=== PATIENT | male | born 1965 | race Caucasian/White ===

== ENCOUNTER 2017-12-04 09:25 | Emergency (ER) | payer BC ==
[2017-12-04 09:50] LABS: BASOPHILS % (AUTO) 1 % (0-3); EOSINOPHILS % (AUTO) 10 % (0-9); HEMATOCRIT 44 % (39-53); HEMOGLOBIN 14.5 gm/dl (13.5-17.7); LYMPHOCYTES % (AUTO) 25.2 % (10-50); MEAN CORPUSCULAR HEMOGLOBIN 31.4 pg (27.0-32.0); MEAN CORPUSCULAR HGB CONC 32.9 gm/dl (32.0-36.0); MEAN CORPUSCULAR VOLUME 96 fL (80-100); MONOCYTES % (AUTO) 12.5 % (0-12); NEUTROPHILS % (AUTO) 50.9 % (37-80)
[2017-12-04 09:54] VITALS: TEMP 97.8
[2017-12-04 10:02] LABS: ALBUMIN 3.5 gm/dl (3.4-5.0); BILIRUBIN,TOTAL 0.6 mg/dl (0.2-1.0); CALCIUM 8.8 mg/dl (8.5-10.1); CARBON DIOXIDE 29.6 mEq/L (21-32); CREATININE 1.15 mg/dl (0.80-1.30); POTASSIUM 3.9 mMol/L (3.5-5.1); TOTAL PROTEIN 7.2 gm/dl (6.4-8.2)
[2017-12-04 11:52] VITALS: BP 123/95; PULSE 69; RESP 13; O2SAT 94
== END 2017-12-04 11:30 | disposition short-term general hospital (02) ==
LOC: ED 09:25
DX: R07.89 Other chest pain (principal)
CPT/HCPCS: 71046; 80053; 85025; 93005; 99284